=== PATIENT | male | born 1960 | race Caucasian/White ===

== ENCOUNTER → 2017-07-02 | Outpatient (CLI) | payer OTHER ==
[~2017-07-02] MED LIST: BIOF500T PO; MULT-506 PO; OMEG10007 PO; ZOLP10TA PO
--- NOTE | 2017-07-02 16:03 | DIAGNOSTIC IMAGING REPORT ---
ABDOMEN LIMITED (US) CLINICAL HISTORY: 57 years-old Male presenting with M79.9 Soft tissue mass Mass is on the left side of the spine. TECHNIQUE: Real-time grayscale Doppler ultrasound imaging of the left back was performed for a focused evaluation at the site of clinical concern. Color Doppler ultrasound imaging was also performed. COMPARISON: None. FINDINGS: At the site of clinical concern in the subcutaneous fat is a focal ovoid 3.0 x 0.4 x 1.7 cm circumscribed region with echogenicity identical to that of surrounding fat. No associated fluid or hyperemia. This is not associated with the cutis. IMPRESSION: 1. 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 Electronically signed by: Osmin Quigley M.D. 07/02/2017 4:02 PM Dictated Date/Time: 07/02/2017 4:01 PM
--- NOTE | 2017-07-02 16:04 | DIAGNOSTIC IMAGING REPORT ---
(RENAL)RETROPERITON COMP CLINICAL HISTORY: 57 years-old Male presenting with R10.9 Left flank pain. TECHNIQUE: Real-time grayscale and limited color Doppler ultrasound imaging of the kidneys and bladder was performed. COMPARISON: None. FINDINGS: Right kidney: Normal echogenicity of renal parenchyma. Right kidney measures 11.4 cm. No hydronephrosis. No convincing evidence of calculus or mass. Left kidney: Normal echogenicity of renal parenchyma. Left kidney measures 11.6 cm. No hydronephrosis. No convincing evidence of calculus or mass. Bladder: Normal. Bilateral ureteral jets present. Other: None. IMPRESSION: 1. Normal renal ultrasound. No obstruction. Electronically signed by: Osmin Quigley M.D. 07/02/2017 4:03 PM Dictated Date/Time: 07/02/2017 4:02 PM
== END | disposition home or self-care (01) ==
LOC: C.ULTRBC 14:31
PROVIDERS: ATTEND Internal Medicine
DX: M79.9 Soft tissue disorder, unspecified (principal); R10.9 Unspecified abdominal pain

== ENCOUNTER → 2017-07-13 | Outpatient (CLI) | payer OTHER | END | disposition home or self-care (01) | LOC: C.PATH 08:30 | PROVIDERS: ATTEND Internal Medicine | DX: M79.9 Soft tissue disorder, unspecified (principal); D17.9 Benign lipomatous neoplasm, unspecified ==